=== PATIENT | female | born 1950 | race Two or more races ===

== ENCOUNTER 2016-10-25 20:20 | Emergency (ER) | payer MEDICARE, OTHER ==
--- NOTE | 2016-10-25 20:26 | PDOC ---
History of Present Illness - General History Source: Patient Exam Limitations: No Limitations - History of Present Illness Initial Comments: 10/25/16 20:56 The patient is a 65 year old female, with a significant past medical history of anxiety, DM, HTN, hypothyroid, and chronic lower back pain, who presents to the emergency department with dizziness. The patient reports having concerns of elevated blood glucose after feelings of dizziness. She also reports having a long history of neck pain radiating down from her neck into right side with associated numbness on her right side neck into her right arm for about 5 years. She also has complaints of of constipation and urinary retention, but was able to urinate in the ER. She denies recent fevers or chills. She denies recent nausea, vomit, or constipation. She denies recent dysuria, frequency, urgency or hematuria. She denies recent chest pain or shortness of breath. PAST MEDICAL HISTORY: See HPI PAST SURGICAL HISTORY: No significant history. FAMILY HISTORY: No pertinent history. SOCIAL HISTORY: Patient lives with family and is employed. MEDICATIONS: Reviewed. ALLERGIES: As per nursing notes. ROS General: No fevers or chills, no weakness, no weight loss HEENT: No change in vision. No sore throat. No ear pain CardioVascular: No chest pain or shortness of breath Respiratory:No cough, or wheezing. Gastrointestinal: +constipation. No nausea, vomiting, diarrhea or constipation. No rectal bleeding Genitourinary: +urinary retention. No dysuria, hematuria, or frequency Musculoskeletal: No joint or muscle pain or swelling Neurologic: +headache, vertigo, dizziness. No loss of consciousness Psychiatric: No depression Skin: No rashes or easy bruising Endocrine: no increased thirst or abnormal weight change Allergic: no skin or latex allergy All other systems reviewed and normal Exam: General: Well-nourished well-developed individual, no acute distress HEENT: Throat: Normal, tonsils normal, no erythema or exudate Neck: Supple, no meningeal signs, no lymphadenopathy Eyes: Pupils equal reactive and round, extraocular motion intact Chest: Nontender to palpation Cardiac: S1-S2 normal, regular rate and rhythm, no murmurs rubs or gallops Respiratory: Lungs clear to auscultation bilateral Abdomen: Soft, nondistended, normal bowel sounds, nontender to palpation diffusely Extremities: Warm, dry, no cyanosis, clubbing, or edema Skin: No rashes Neuro: Alert and oriented x3, nonfocal exam, grossly intact, normal gait Psych: Normal mood and affect <Bethel Whalen - Last Filed: 10/25/16 20:56> - General History Source: Patient Exam Limitations: No Limitations - History of Present Illness Initial Comments: 10/25/16 21:39 Flat and upright abdomen shows a moderate amount of stool in the rectum/ constipation A portion of this note was documented by scribe services under my direction. I have reviewed the details of the note, within reason, and agree with the documentation. The case summary and management plan written by me. Assessment and plan: This is a 65-year-old female who comes in complaining of multiple vague complaints. The patient was supposed to see her doctor today and her doctor couldn't see her so she came in for evaluation. Patient had normal CBC normal H& H and normal differential. The patient's chemistries showed some mild abnormalities however nothing acute that needed to be addressed here in the emergency room. Patient's flat and upright of her abdomen did show a moderate amount of constipation. Patient was told to purchase an oil retention enema as well as a fleets enema and is self administer when she got home in addition to that she should purchase some stool softeners and [id number] laxatives and take as directed on the box. Patient has an appointment to follow-up with her doctor tomorrow. <Juan Manuel Khoury I - Last Filed: 10/25/16 21:43> - General Chief Complaint: Back Pain Stated Complaint: BACK PAIN Time Seen by Provider: 10/25/16 20:21 Past History <Bethel Whalen - Last Filed: 10/25/16 20:56> - Past Medical History Thyroid Disease: Yes - Immunization History Td Vaccination: No - Psycho/Social/Smoking Cessation Hx Anxiety: Yes Suicidal Ideation: No Smoking Status: No Smoking History: Current every day smoker Have you smoked in the past 12 months: Yes Number of Cigarettes Smoked Daily: 3 Hx Alcohol Use: No Drug/Substance Use Hx: No <Juan Manuel Khoury I - Last Filed: 10/25/16 21:43> - Past Medical History Allergies/Adverse Reactions: Allergies Allergy/AdvReac Type Severity Reaction Status Date / Time codeine [Codeine] Allergy Mild Verified 05/15/11 18:36 cortisone [Cortisone] Allergy Mild Verified 05/15/11 18:37 Home Medications: Ambulatory Orders Unable To Verify Meds W/Pt 05/16/11 Lorazepam [Ativan] 0.5 mg PO DAILY PRN #0 tablet 05/18/11 Quetiapine Fumarate [Seroquel -] 25 mg PO DAILY #0 tablet 05/18/11 Synthroid #0 05/18/11 *Physical Exam - Vital Signs Last Vital Signs Temp Pulse Resp BP Pulse Ox 99 F 100 H 14 108/66 99 10/25/16 20:22 10/25/16 20:22 10/25/16 20:22 10/25/16 20:22 10/25/16 20:22 <Bethel Whalen - Last Filed: 10/25/16 20:56> ED Treatment Course - LABORATORY CBC & Chemistry Diagram: 10/25/16 21:10 10/25/16 21:10 <Juan Manuel Khoury I - Last Filed: 10/25/16 21:43> *DC/Admit/Observation/Transfer - Attestations Scribe Attestion: 10/25/16 20:56 Documentation prepared by Bethel Whalen, acting as medical charge entry specialist for Juan Manuel Khoury MD. <Bethel Whalen - Last Filed: 10/25/16 20:56> - Discharge Dispostion Admit: No <Juan Manuel Khoury I - Last Filed: 10/25/16 21:43> Diagnosis at time of Disposition: Slow transit constipation - Discharge Dispostion Disposition: HOME Condition at time of disposition: Good - Patient Instructions Additional Instructions: Purchase an [id number] oil retention enema as well as a fleets enema from the pharmacy and self administer at home as per the instructions. In addition to that you can purchase a stool softener and a laxative and take tomorrow if still have not had a significant delay large stool. Follow-up with your doctor tomorrow when you follow-up with your doctor discussed the constipation with your doctor and have your Dr. give you some medication for the constipation. Return to the emergency department immediately with ANY new, persistent or worsening symptoms. Continue any medications as previously prescribed by your physician. You should follow up with your primary doctor as soon as possible regarding today's emergency department visit. . Please make sure your doctor reviews the results of your emergency evaluation. Thank you for coming to the Emergency Department today for your care. It was a pleasure to see you today. Please note that your evaluation is INCOMPLETE until you follow-up with your doctor.
[2016-10-25 20:30] VITALS: BP 108/66; PULSE 100; TEMP 99; BMI 33.2
[2016-10-25 21:17] LABS: PH,URINE 5.5 (4.5-8); URINE BILIRUBIN Negative (NEGATIVE); URINE BLOOD Negative (NEGATIVE); URINE GLUCOSE (UA) Negative (NEGATIVE); URINE KETONE Trace (NEGATIVE); URINE NITRITE Positive (NEGATIVE)
[2016-10-25 21:18] LABS: URINE APPEARANCE HAZY; URINE COLOR YELLOW; URINE LEUK ESTERASE TRACE (NEGATIVE); URINE PROTEIN 1+ (NEGATIVE)
[2016-10-25 21:34] LABS: ALBUMIN 3.8 g/dl (3.5-5.0); ALK PHOS 84 U/L (32-92); ANION GAP 4 (8-16); BILIRUBIN,TOTAL 0.3 mg/dl (0.2-1.0); CALCIUM 8.9 mg/dl (8.4-10.2); CO2 24 mmol/L (22-28); CREATININE 0.8 mg/dl (0.6-1.3); GLUCOSE,RANDOM 167 mg/dl (74-106); SGOT/AST 45 U/L (10-42); SGPT/ALT 48 U/L (10-40); TOT PROT 7.3 g/dl (6.4-8.3)
[2016-10-25 21:35] LABS: BASOPHIL 0.6 % (0-2.0); EOSINOPHIL 3.1 % (0-4.5); MCH 29.9 pg (25.7-33.7); MEAN CELL VOLUME 87.9 fl (80-96); MEAN PLT VOLUME 10.2 fl (7.5-11.1); NEUTROPHILS 57.6 % (42.8-82.8); PLATELET COUNT 207 K/MM3 (134-434); RDW 13.4 % (11.6-15.6); WHITE BLOOD COUNT 6.6 K/mm3 (4.0-10.8)
[2016-10-25 22:01] LABS: URINE BACTERIA MANY /hpf (NEGATIVE)
--- NOTE | 2016-10-26 11:56 | EKG ---
Test Reason : Blood Pressure : / mmHG Vent. Rate : 085 BPM Atrial Rate : 085 BPM P-R Int : 156 ms QRS Dur : 106 ms QT Int : 396 ms P-R-T Axes : 036 -41 048 degrees QTc Int : 471 ms NORMAL SINUS RHYTHM LEFT AXIS DEVIATION VOLTAGE CRITERIA FOR LEFT VENTRICULAR HYPERTROPHY CANNOT RULE OUT SEPTAL INFARCT , AGE UNDETERMINED ABNORMAL ECG NO PREVIOUS ECGS AVAILABLE Confirmed by MAGDALENE SYED MD ([id number] on 10/26/2016 11:55:57 AM Referred By: MD LAW Confirmed By:MAGDALENE SYED MD
== END 2016-10-25 21:50 | disposition home or self-care (01) ==
LOC: FER 20:20
DX: K59.01 Slow transit constipation (principal); E07.9 Disorder of thyroid, unspecified; F17.210 Nicotine dependence, cigarettes, uncomplicated
CPT/HCPCS: 36415; 74020-TC; 80053; 81003; 81015; 85025; 93005; 99283-25

== ENCOUNTER 2023-03-23 19:45 | Inpatient (IN) | payer MEDICARE, OTHER ==
[2023-03-23 20:13] VITALS: BMI 33.6
[2023-03-23 20:56] LABS: BASO % 0.8 % (0-2.0); EOS % 0.3 % (0-4.5); HEMOGLOBIN 11.6 GM/dL (10.7-15.3); LYMPH % 13.7 % (8-40); MCH 31.5 pg (25.7-33.7); MEAN CELL VOLUME 92.6 fl (80-96); MEAN PLT VOLUME 9.6 fl (7.5-11.1); MONO % 6.6 % (3.8-10.2); NEUT % 78.6 % (42.8-82.8); PLATELET COUNT 307 10^3/uL (134-434); RBC 3.68 M/mm3 (3.60-5.2); RDW 15.4 % (11.6-15.6); WHITE BLOOD COUNT 9.8 K/mm3 (4.0-10.0)
[2023-03-23 21:28] LABS: POTASSIUM 4.9 mmol/L (3.5-5.1)
[2023-03-23 21:30] LABS: ALBUMIN 3.2 g/dl (3.4-5.0); BLOOD UREA NITROGEN 16.5 mg/dL (7-18); CALCIUM 8.6 mg/dL (8.5-10.1); MAGNESIUM 1.6 mg/dL (1.8-2.4)
[2023-03-23 21:34] LABS: PHOSPHOROUS 2.8 mg/dL (2.5-4.9)
[2023-03-23 21:35] LABS: BILIRUBIN,TOTAL 0.8 mg/dL (0.2-1); TOT PROT 7.6 g/dl (6.4-8.2)
[2023-03-23] MEDS ORDERED: MAGNESIUM SULF 50% (8.12 MEQ/2 ML-1 GM VIAL) IVPB ONE (21:43)
[2023-03-23] MEDS ORDERED: MAGNESIUM 1GM/D5W - 1 GM/100 ML IVPB IVPB ONE (21:56)
[2023-03-23 22:37] LABS: INR 1.19 (0.83-1.09); PROTHROMBIN TIME (PATIENT) 13.8 SEC (9.7-13.0)
[2023-03-23 22:40] LABS: ACTIVATED PTT 27.2 SECONDS (25.2-36.5)
[2023-03-24] MEDS ORDERED: SODIUM CHLORIDE 0.9% 500 ML INFUS.BAG IV ONE (00:35)
[2023-03-24] MEDS ORDERED: ACETAMINOPHEN 1000 MG/100 ML BAG IVPB ONE (00:35)
[2023-03-24] MEDS ORDERED: ACETAMINOPHEN INJECTION 100 ML IVPB ONE ×3 (01:20→15:18)
[2023-03-24 01:57] LABS: EPI CELLS 6 /uL (0-25.1); HYALINE CASTS 1 /uL (0-3.1); PH,URINE 6.5 (5.0-8.0); URINE APPEARANCE CLEAR; URINE BACTERIA 3 /uL (0-1359); URINE BILIRUBIN NEGATIVE (NEGATIVE); URINE COLOR YELLOW; URINE GLUCOSE (UA) 3+ (NEGATIVE); URINE KETONE TRACE (NEGATIVE); URINE LEUK ESTERASE NEGATIVE (NEGATIVE); URINE NITRITE NEGATIVE (NEGATIVE); URINE PROTEIN 3+ (NEGATIVE); URINE RBC 13 /uL (0-23.9); URINE WBC 4 /uL (0-25.8)
[2023-03-24] MEDS: SODIUM CHLORIDE 1,000 ML IV SCH (05:09)
[2023-03-24 08:46] LABS: BASO % 0.2 % (0-2.0); EOS % 0.2 % (0-4.5); HEMATOCRIT 32.2 % (32.4-45.2); HEMOGLOBIN 11.1 GM/dL (10.7-15.3); MCH 32.2 pg (25.7-33.7); MCHC 34.6 g/dl (32.0-36.0); MEAN CELL VOLUME 93.2 fl (80-96); MEAN PLT VOLUME 9.9 fl (7.5-11.1); MONO % 5.4 % (3.8-10.2); NEUT % 72.2 % (42.8-82.8); PLATELET COUNT 267 10^3/uL (134-434); RBC 3.46 M/mm3 (3.60-5.2); RDW 15.3 % (11.6-15.6)
[2023-03-24 09:09] LABS: POTASSIUM 3.9 mmol/L (3.5-5.1)
[2023-03-24 09:14] LABS: CALCIUM 7.9 mg/dL (8.5-10.1)
[2023-03-24 09:16] LABS: BLOOD UREA NITROGEN 17.3 mg/dL (7-18)
[2023-03-24 09:18] LABS: CREATININE 0.9 mg/dL (0.55-1.3)
[2023-03-24 09:19] LABS: TOT PROT 6.7 g/dl (6.4-8.2)
[2023-03-24] MEDS: ACETAMINOPHEN 1000 MG/100 ML BAG IVPB PRN ×2 (10:28→15:26)
[2023-03-25] MEDS: SODIUM CHLORIDE 1,000 ML IV SCH ×2 (15:10→21:31)
[2023-03-25] MEDS: ACETAMINOPHEN 1000 MG/100 ML BAG IVPB PRN (21:33)
[2023-03-26] MEDS: SODIUM CHLORIDE 1,000 ML IV SCH ×2 (06:54→14:39)
[2023-03-26] MEDS: ACETAMINOPHEN 1000 MG/100 ML BAG IVPB PRN ×3 (06:55→22:51)
[2023-03-26 07:24] LABS: BASO % 0.4 % (0-2.0); EOS % 1.9 % (0-4.5); HEMATOCRIT 28.7 % (32.4-45.2); HEMOGLOBIN 9.7 GM/dL (10.7-15.3); LYMPH % 22.6 % (8-40); MCH 31.7 pg (25.7-33.7); MCHC 33.9 g/dl (32.0-36.0); MEAN CELL VOLUME 93.7 fl (80-96); MEAN PLT VOLUME 9.6 fl (7.5-11.1); MONO % 6.9 % (3.8-10.2); NEUT % 68.2 % (42.8-82.8); PLATELET COUNT 242 10^3/uL (134-434); RBC 3.07 M/mm3 (3.60-5.2); RDW 15.5 % (11.6-15.6); WHITE BLOOD COUNT 6.2 K/mm3 (4.0-10.0)
[2023-03-26 08:00] LABS: POTASSIUM 3.6 mmol/L (3.5-5.1)
[2023-03-26 08:03] LABS: CALCIUM 7.9 mg/dL (8.5-10.1)
[2023-03-26 08:04] LABS: ALBUMIN 2.7 g/dl (3.4-5.0); BLOOD UREA NITROGEN 8.7 mg/dL (7-18)
[2023-03-26 08:07] LABS: CREATININE 0.8 mg/dL (0.55-1.3)
[2023-03-26 08:08] LABS: TOT PROT 6.4 g/dl (6.4-8.2)
[2023-03-26 08:09] LABS: BILIRUBIN,TOTAL 0.9 mg/dL (0.2-1)
[2023-03-26] MEDS: DEXTROSE 5%-0.45% SALINE 1,000 ML IV SCH (22:52)
[2023-03-27] MEDS ORDERED: LEVOTHYROXINE NA 75 MCG TABLET (FP) PO SCH (07:00)
[2023-03-27] MEDS ORDERED: LEVOTHYROXINE NA 50 MCG TABLET (FP) PO SCH (07:00)
[2023-03-27] MEDS: ACETAMINOPHEN 1000 MG/100 ML BAG IVPB PRN ×2 (09:03→14:59)
[2023-03-27] MEDS: LEVOTHYROXINE SODIUM 100 MCG 5 ML VIAL IVPUSH SCH (09:03)
[2023-03-28] MEDS: DEXTROSE 5%-0.45% SALINE 1,000 ML IV SCH ×2 (01:23→01:29)
[2023-03-28] MEDS: ACETAMINOPHEN 1000 MG/100 ML BAG IVPB PRN ×4 (01:37→23:18)
[2023-03-28 09:26] LABS: BASO % 0.7 % (0-2.0); EOS % 3.5 % (0-4.5); HEMATOCRIT 28.8 % (32.4-45.2); HEMOGLOBIN 9.6 GM/dL (10.7-15.3); LYMPH % 23.3 % (8-40); MCH 31.3 pg (25.7-33.7); MCHC 33.5 g/dl (32.0-36.0); MEAN CELL VOLUME 93.5 fl (80-96); MEAN PLT VOLUME 9.3 fl (7.5-11.1); MONO % 6.9 % (3.8-10.2); NEUT % 65.6 % (42.8-82.8); PLATELET COUNT 280 10^3/uL (134-434); RBC 3.08 M/mm3 (3.60-5.2); WHITE BLOOD COUNT 6.5 K/mm3 (4.0-10.0)
[2023-03-28 09:43] LABS: POTASSIUM 3.5 mmol/L (3.5-5.1)
[2023-03-28 09:46] LABS: ALBUMIN 2.5 g/dl (3.4-5.0); CALCIUM 7.9 mg/dL (8.5-10.1)
[2023-03-28 09:47] LABS: BLOOD UREA NITROGEN 6.8 mg/dL (7-18)
[2023-03-28 09:49] LABS: CREATININE 0.9 mg/dL (0.55-1.3)
[2023-03-28 09:51] LABS: BILIRUBIN,TOTAL 0.9 mg/dL (0.2-1); TOT PROT 6.2 g/dl (6.4-8.2)
[2023-03-28] MEDS: LEVOTHYROXINE SODIUM 100 MCG 5 ML VIAL IVPUSH SCH (10:42)
[2023-03-28] MEDS: INSULIN SLIDING SCALE (NOVOLOG) 1 VIAL SQ SCH ×3 (13:08→22:36)
[2023-03-29] MEDS: ACETAMINOPHEN 1000 MG/100 ML BAG IVPB PRN ×2 (05:24→16:56)
[2023-03-29] MEDS: INSULIN SLIDING SCALE (NOVOLOG) 1 VIAL SQ SCH ×4 (06:31→21:26)
[2023-03-29] MEDS: LEVOTHYROXINE SODIUM 100 MCG 5 ML VIAL IVPUSH SCH (09:49)
[2023-03-29] MEDS: ACETAMINOPHEN 325 MG TABLET (FP) PO PRN ×2 (15:35→21:15)
[2023-03-29] MEDS ORDERED: ATORVASTATIN CA 10 MG TABLET (FP) PO SCH (22:00)
[2023-03-30] MEDS: ACETAMINOPHEN 1000 MG/100 ML BAG IVPB PRN (01:52)
[2023-03-30] MEDS: ACETAMINOPHEN 325 MG TABLET (FP) PO PRN (03:01)
[2023-03-30] MEDS: INSULIN SLIDING SCALE (NOVOLOG) 1 VIAL SQ SCH ×3 (06:00→21:36)
[2023-03-30 09:28] LABS: BASO % 0.6 % (0-2.0); EOS % 3.7 % (0-4.5); HEMATOCRIT 29.1 % (32.4-45.2); MCH 31.9 pg (25.7-33.7); MCHC 34.2 g/dl (32.0-36.0); MEAN CELL VOLUME 93.3 fl (80-96); NEUT % 63.7 % (42.8-82.8); PLATELET COUNT 303 10^3/uL (134-434); RBC 3.12 M/mm3 (3.60-5.2); RDW 15.6 % (11.6-15.6); WHITE BLOOD COUNT 5.3 K/mm3 (4.0-10.0)
[2023-03-30 09:36] LABS: INR 1.17 (0.83-1.09); PROTHROMBIN TIME (PATIENT) 13.6 SEC (9.7-13.0)
[2023-03-30] MEDS: LEVOTHYROXINE SODIUM 100 MCG 5 ML VIAL IVPUSH SCH (10:13)
[2023-03-30] MEDS ORDERED: ACETAMINOPHEN 1000 MG/100 ML BAG IVPB ONE (11:15)
[2023-03-30 11:32] LABS: POTASSIUM 3.6 mmol/L (3.5-5.1)
[2023-03-30 12:15] LABS: ALBUMIN 2.7 g/dl (3.4-5.0); BLOOD UREA NITROGEN 10.9 mg/dL (7-18); CALCIUM 8.3 mg/dL (8.5-10.1)
[2023-03-30 12:17] LABS: CREATININE 0.9 mg/dL (0.55-1.3)
[2023-03-30 12:19] LABS: BILIRUBIN,TOTAL 0.9 mg/dL (0.2-1); TOT PROT 6.5 g/dl (6.4-8.2)
[2023-03-30] MEDS ORDERED: LISINOPRIL 5 MG TABLET PO SCH (12:30)
[2023-03-30] MEDS ORDERED: ROPIVACAINE HCL 0.5% 30ML VIAL ONE (14:16)
[2023-03-30] MEDS ORDERED: MIDAZOLAM HCL 2 MG/2 ML SINGLE DOSE VIAL ONE (14:17)
[2023-03-30] MEDS ORDERED: PROPOFOL 20 ML ONE (14:48)
[2023-03-30] MEDS ORDERED: LIDOCAINE HCL/PF 2% SDV 5ML VIAL ONE (14:50)
[2023-03-30] MEDS ORDERED: ceFAZolin SODIUM 1 GM VIAL IVPB ONE (15:00)
[2023-03-30] MEDS ORDERED: ceFAZolin SODIUM 1 GM VIAL ONE (15:00)
[2023-03-30] MEDS ORDERED: ONDANSETRON 4 MG/2 ML VIAL ONE (15:07)
[2023-03-30] MEDS ORDERED: oxyCODONE HCL 5 MG TABLET PO PRN (16:26)
[2023-03-30] MEDS ORDERED: PROMETHAZINE HCL 25 MG/1 ML VIAL IVPB PRN (16:26)
[2023-03-30] MEDS ORDERED: ONDANSETRON 4 MG/2 ML VIAL IVPUSH PRN (16:26)
[2023-03-30] MEDS: LACTATED RINGERS SOLUTION 1,000 ML IV SCH (16:30)
[2023-03-30] MEDS ORDERED: PROMETHAZINE HCL 25 MG/1 ML VIAL ONE (16:46)
[2023-03-30] MEDS ORDERED: PROMETHAZINE HCL 25 MG/1 ML VIAL IVPB ONE (16:49)
[2023-03-30] MEDS ORDERED: hydrALAZINE HCL 20 MG/ML VIAL IVPUSH ONE ×2 (16:56→17:02)
[2023-03-30] MEDS ORDERED: hydrALAZINE HCL 20 MG/ML VIAL ONE (17:00)
[2023-03-30] MEDS: oxyCODONE HCL 5 MG TABLET PO PRN (21:30)
[2023-03-30] MEDS: ATORVASTATIN CA 10 MG TABLET (FP) PO SCH (21:30)
[2023-03-30] MEDS: CEFAZOLIN SODIUM 2 GM in DEXTROSE 5%-WATER 100 ML IVPB SCH (22:40)
[2023-03-30] MEDS ORDERED: ceFAZolin 2 GRAM PREMIX BAG IVPB SCH (23:00)
[2023-03-31] MEDS: oxyCODONE HCL 5 MG TABLET PO PRN ×2 (06:18→10:25)
[2023-03-31] MEDS: CEFAZOLIN SODIUM 2 GM in DEXTROSE 5%-WATER 100 ML IVPB SCH (06:18)
[2023-03-31] MEDS: LEVOTHYROXINE SODIUM 100 MCG 5 ML VIAL IVPUSH SCH (06:18)
[2023-03-31] MEDS: INSULIN SLIDING SCALE (NOVOLOG) 1 VIAL SQ SCH ×4 (06:19→21:22)
[2023-03-31] MEDS: LISINOPRIL 5 MG TABLET PO SCH (09:10)
[2023-03-31] MEDS: LACTATED RINGERS SOLUTION 1,000 ML IV SCH ×2 (11:49→16:47)
[2023-03-31] MEDS: ACETAMINOPHEN 325 MG TABLET (FP) PO PRN (16:39)
[2023-03-31] MEDS: ATORVASTATIN CA 10 MG TABLET (FP) PO SCH (21:22)
[2023-04-01] MEDS: ACETAMINOPHEN 325 MG TABLET (FP) PO PRN ×4 (02:24→21:47)
[2023-04-01] MEDS: LEVOTHYROXINE SODIUM 100 MCG 5 ML VIAL IVPUSH SCH (06:13)
[2023-04-01] MEDS: INSULIN SLIDING SCALE (NOVOLOG) 1 VIAL SQ SCH ×4 (06:19→21:46)
[2023-04-01] MEDS: LACTATED RINGERS SOLUTION 1,000 ML IV SCH ×3 (06:20→21:41)
[2023-04-01] MEDS: LISINOPRIL 5 MG TABLET PO SCH (09:21)
[2023-04-01] MEDS ORDERED: BISACODYL 5 MG TABLET.DR (FP) PO ONE (15:33)
[2023-04-01] MEDS: POLYETHYLENE GLYCOL (HEALTHYLAX) 3350 17 GM PACKET PO SCH (17:00)
[2023-04-01] MEDS: ATORVASTATIN CA 10 MG TABLET (FP) PO SCH (21:40)
[2023-04-02] MEDS: LEVOTHYROXINE SODIUM 100 MCG 5 ML VIAL IVPUSH SCH (06:10)
[2023-04-02] MEDS: INSULIN SLIDING SCALE (NOVOLOG) 1 VIAL SQ SCH ×4 (06:15→21:15)
[2023-04-02] MEDS: LACTATED RINGERS SOLUTION 1,000 ML IV SCH (06:15)
[2023-04-02] MEDS: LISINOPRIL 5 MG TABLET PO SCH (09:24)
[2023-04-02] MEDS: ACETAMINOPHEN 325 MG TABLET (FP) PO PRN ×3 (09:24→22:15)
[2023-04-02] MEDS: POLYETHYLENE GLYCOL (HEALTHYLAX) 3350 17 GM PACKET PO SCH (09:25)
[2023-04-02] MEDS: ATORVASTATIN CA 10 MG TABLET (FP) PO SCH (21:15)
[2023-04-03] MEDS: INSULIN SLIDING SCALE (NOVOLOG) 1 VIAL SQ SCH ×4 (06:25→22:03)
[2023-04-03] MEDS: ACETAMINOPHEN 325 MG TABLET (FP) PO PRN ×2 (06:26→22:02)
[2023-04-03] MEDS: LEVOTHYROXINE SODIUM 100 MCG 5 ML VIAL IVPUSH SCH (06:30)
[2023-04-03] MEDS: POLYETHYLENE GLYCOL (HEALTHYLAX) 3350 17 GM PACKET PO SCH (09:13)
[2023-04-03] MEDS: LISINOPRIL 5 MG TABLET PO SCH (09:14)
[2023-04-03 10:12] LABS: POTASSIUM 3.5 mmol/L (3.5-5.1)
[2023-04-03 10:19] LABS: CALCIUM 8.3 mg/dL (8.5-10.1)
[2023-04-03 10:20] LABS: ALBUMIN 2.3 g/dl (3.4-5.0); BLOOD UREA NITROGEN 9.8 mg/dL (7-18)
[2023-04-03 10:22] LABS: BILIRUBIN,TOTAL 0.8 mg/dL (0.2-1)
[2023-04-03 10:23] LABS: CREATININE 0.7 mg/dL (0.55-1.3)
[2023-04-03] MEDS ORDERED: INSULIN SLIDING SCALE (NOVOLOG) 1 VIAL SQ ONE ×2 (10:36)
[2023-04-03 18:19] LABS: BASO % 0.4 % (0-2.0); EOS % 2.5 % (0-4.5); HEMATOCRIT 29.6 % (32.4-45.2); HEMOGLOBIN 9.8 GM/dL (10.7-15.3); LYMPH % 21.1 % (8-40); MCH 31.1 pg (25.7-33.7); MCHC 33.2 g/dl (32.0-36.0); MEAN CELL VOLUME 93.6 fl (80-96); MEAN PLT VOLUME 8.5 fl (7.5-11.1); MONO % 5.5 % (3.8-10.2); NEUT % 70.5 % (42.8-82.8); PLATELET COUNT 310 10^3/uL (134-434); RBC 3.16 M/mm3 (3.60-5.2); RDW 15.7 % (11.6-15.6); WHITE BLOOD COUNT 6.4 K/mm3 (4.0-10.0)
[2023-04-03] MEDS: ATORVASTATIN CA 10 MG TABLET (FP) PO SCH (22:02)
[2023-04-03] MEDS: HEPARIN NA (PORCINE) 5,000 UNITS/ML 1ML VIAL SQ SCH (22:02)
[2023-04-04 05:36] VITALS: RESP 18
[2023-04-04] MEDS: INSULIN SLIDING SCALE (NOVOLOG) 1 VIAL SQ SCH ×2 (07:02→10:43)
[2023-04-04] MEDS: LEVOTHYROXINE SODIUM 100 MCG 5 ML VIAL IVPUSH SCH (07:04)
[2023-04-04] MEDS: LISINOPRIL 5 MG TABLET PO SCH (09:22)
[2023-04-04] MEDS: HEPARIN NA (PORCINE) 5,000 UNITS/ML 1ML VIAL SQ SCH (09:22)
[2023-04-04] MEDS: POLYETHYLENE GLYCOL (HEALTHYLAX) 3350 17 GM PACKET PO SCH (09:22)
[2023-04-04 09:23] LABS: BASO % 0.6 % (0-2.0); EOS % 3.3 % (0-4.5); HEMATOCRIT 29.2 % (32.4-45.2); HEMOGLOBIN 9.6 GM/dL (10.7-15.3); LYMPH % 20.1 % (8-40); MCH 31.2 pg (25.7-33.7); MEAN CELL VOLUME 94.6 fl (80-96); MEAN PLT VOLUME 8.6 fl (7.5-11.1); MONO % 7.3 % (3.8-10.2); NEUT % 68.7 % (42.8-82.8); PLATELET COUNT 294 10^3/uL (134-434); RBC 3.08 M/mm3 (3.60-5.2); RDW 15.5 % (11.6-15.6); WHITE BLOOD COUNT 5.8 K/mm3 (4.0-10.0)
[2023-04-04 10:24] LABS: POTASSIUM 3.4 mmol/L (3.5-5.1)
[2023-04-04 10:39] LABS: CALCIUM 8.4 mg/dL (8.5-10.1)
[2023-04-04 10:40] LABS: ALBUMIN 2.4 g/dl (3.4-5.0)
[2023-04-04 10:42] LABS: BLOOD UREA NITROGEN 9.2 mg/dL (7-18); CREATININE 0.8 mg/dL (0.55-1.3)
[2023-04-04 10:45] LABS: BILIRUBIN,TOTAL 0.8 mg/dL (0.2-1); TOT PROT 6.2 g/dl (6.4-8.2)
[2023-04-04] MEDS ORDERED: POTASSIUM CHLORIDE TABS 10 MEQ TABLET.ER (FP) PO ONE (12:30)
[2023-04-04 14:34] VITALS: BP 149/77; PULSE 75; TEMP 98.1
== END 2023-04-04 06:40 | DRG 41 ==
LOC: JER 19:45 → JERBED 23:42 → J4W 03-24 18:53 → J6S 03-28 00:32
PROVIDERS: ADMIT Internal Medicine; ATTEND Internal Medicine
PROC: 0LQL0ZZ Repair Right Upper Leg Tendon, Open Approach (ICD-10-PCS; principal; 2023-03-29)
DX: S06.5X0A Traumatic subdural hemorrhage without loss of consciousness, initial encounter (principal); E87.1 Hypo-osmolality and hyponatremia; M62.82 Rhabdomyolysis; M80.08XA Age-related osteoporosis with current pathological fracture, vertebra(e), initial encounter for fracture; I10 Essential (primary) hypertension; E11.9 Type 2 diabetes mellitus without complications; E03.9 Hypothyroidism, unspecified; I45.10 Unspecified right bundle-branch block; X58.XXXA Exposure to other specified factors, initial encounter; Y93.9 Activity, unspecified; Y92.009 Unspecified place in unspecified non-institutional (private) residence as the place of occurrence of the external cause; Y99.8 Other external cause status; F41.9 Anxiety disorder, unspecified; M54.9 Dorsalgia, unspecified; E11.42 Type 2 diabetes mellitus with diabetic polyneuropathy; S76.191A Other specified injury of right quadriceps muscle, fascia and tendon, initial encounter; I12.9 Hypertensive chronic kidney disease with stage 1 through stage 4 chronic kidney disease, or unspecified chronic kidney disease; E11.22 Type 2 diabetes mellitus with diabetic chronic kidney disease; N18.9 Chronic kidney disease, unspecified; K59.00 Constipation, unspecified
CPT/HCPCS: 0241U-QW; 36415; 70450-TC; 71045-TC-FY; 71260-TC; 72125-TC; 72128-TC; 72131-TC; 72148-TC; 73552-TC-RT-FY; 73562-TC-RT-FY; 73564-TC-RT-FY; 73700-TC-RT; 74177-TC; 80053; 80061; 81003; 82272; 82550; 82553; 82962; 83036; 83735; 84100; 84439; 84443; 84481; 84484; 85025; 85610; 85730; 86850; 86900; 86901; 87086; 93005; 93010; 93306-TC; 93971-TC; 94760; 97116-GP; 97162-GP; 99285-25; J1644; Q9967

== ENCOUNTER 2023-04-25 16:10 | Inpatient (IN) | payer OTHER ==
[2023-04-25 18:02] LABS: BASO % 0.2 % (0-2.0); HEMATOCRIT 34.3 % (32.4-45.2); HEMOGLOBIN 11.2 GM/dL (10.7-15.3); LYMPH % 7.4 % (8-40); MCH 30.2 pg (25.7-33.7); MCHC 32.5 g/dl (32.0-36.0); MEAN CELL VOLUME 93.1 fl (80-96); MEAN PLT VOLUME 10.1 fl (7.5-11.1); MONO % 3.4 % (3.8-10.2); PLATELET COUNT 294 10^3/uL (134-434); RBC 3.69 M/mm3 (3.60-5.2); RDW 15.3 % (11.6-15.6)
[2023-04-25 18:04] LABS: EPI CELLS >36 /uL (0-25.1); HYALINE CASTS 15 /uL (0-3.1); PH,URINE 7.5 (5.0-8.0); URINE APPEARANCE TURBID; URINE BACTERIA >9,000 /uL (0-1359); URINE BILIRUBIN NEGATIVE (NEGATIVE); URINE COLOR YELLOW; URINE GLUCOSE (UA) NEGATIVE (NEGATIVE); URINE KETONE TRACE (NEGATIVE); URINE LEUK ESTERASE TRACE (NEGATIVE); URINE NITRITE NEGATIVE (NEGATIVE); URINE PROTEIN 3+ (NEGATIVE); URINE WBC 462 /uL (0-25.8)
[2023-04-25 18:12] LABS: INR 1.38 (0.83-1.09); PROTHROMBIN TIME (PATIENT) 15.9 SEC (9.7-13.0)
[2023-04-25 18:15] LABS: ACTIVATED PTT 29.9 SECONDS (25.2-36.5)
[2023-04-25 18:21] LABS: URINE RBC 96.9 /uL (0-23.9)
[2023-04-25 18:26] LABS: CHLORIDE 103 mmol/L (98-107); POTASSIUM 4.7 mmol/L (3.5-5.1); SODIUM 138 mmol/L (136-145)
[2023-04-25 18:29] LABS: ALBUMIN 3.1 g/dl (3.4-5.0); ANION GAP 13 mmol/L (4-13); CALCIUM 8.7 mg/dL (8.5-10.1); CO2 23 mmol/L (21-32)
[2023-04-25 18:30] LABS: GLUCOSE,RANDOM 221 mg/dL (74-106)
[2023-04-25 18:31] LABS: SGPT/ALT 15 U/L (13-61)
[2023-04-25 18:33] LABS: BILIRUBIN,TOTAL 0.9 mg/dL (0.2-1); SGOT/AST 30 U/L (15-37); TOT PROT 8.2 g/dl (6.4-8.2)
[2023-04-25 18:34] LABS: ALK PHOS 94 U/L (45-117)
[2023-04-25] MEDS ORDERED: CEFTRIAXONE 1,000 MG in DEXTROSE 5%-WATER - 50 ML IVPB ONE (18:45)
[2023-04-25] MEDS ORDERED: CEFTRIAXONE 1 GM/50 ML BAG ONE (19:23)
[2023-04-25 20:29] LABS: VENOUS BASE EXCESS -2.2 mmol/L (-2-2); VENOUS O2 SATURATION 95.3 % (70-80); VENOUS PCO2 37.7 mmHg (38-52); VENOUS PH 7.391 (7.310-7.410)
[2023-04-25] MEDS ORDERED: ASPIRIN 81 MG CHEWABLE TABLETS PO ONE ×2 (20:56→21:25)
[2023-04-25] MEDS ORDERED: ASPIRIN 325 MG TABLET ONE (21:47)
[2023-04-25] MEDS ORDERED: APIXABAN 2.5 MG TABLET PO ONE (22:54)
[2023-04-25] MEDS ORDERED: SODIUM CHLORIDE 1,000 ML IV STA (22:57)
[2023-04-25] MEDS ORDERED: APIXABAN 2.5 MG TABLET ONE (22:58)
[2023-04-26 06:58] LABS: BASO % 0.3 % (0-2.0); EOS % 0.1 % (0-4.5); HEMATOCRIT 34.7 % (32.4-45.2); HEMOGLOBIN 11.2 GM/dL (10.7-15.3); LYMPH % 17.4 % (8-40); MCH 29.7 pg (25.7-33.7); MCHC 32.2 g/dl (32.0-36.0); MEAN CELL VOLUME 92.3 fl (80-96); MEAN PLT VOLUME 9.8 fl (7.5-11.1); MONO % 5.5 % (3.8-10.2); NEUT % 76.7 % (42.8-82.8); PLATELET COUNT 294 10^3/uL (134-434); RBC 3.76 M/mm3 (3.60-5.2); RDW 15.1 % (11.6-15.6); WHITE BLOOD COUNT 9.7 K/mm3 (4.0-10.0)
[2023-04-26] MEDS ORDERED: LEVOTHYROXINE NA 100 MCG TABLET (FP) PO SCH ×2 (07:00→07:33)
[2023-04-26 07:01] LABS: POTASSIUM 4.2 mmol/L (3.5-5.1)
[2023-04-26 07:04] LABS: ALBUMIN 2.9 g/dl (3.4-5.0); BLOOD UREA NITROGEN 27.6 mg/dL (7-18); CALCIUM 8.6 mg/dL (8.5-10.1)
[2023-04-26 07:07] LABS: CREATININE 1.6 mg/dL (0.55-1.3)
[2023-04-26 07:08] LABS: BILIRUBIN,TOTAL 0.6 mg/dL (0.2-1); TOT PROT 7.7 g/dl (6.4-8.2)
[2023-04-26] MEDS ORDERED: CEFTRIAXONE 1 GM/50 ML BAG ONE (08:36)
[2023-04-26] MEDS ORDERED: LEVOTHYROXINE NA 25 MCG TABLET (FP) ONE (08:52)
[2023-04-26] MEDS ORDERED: LEVOTHYROXINE NA 50 MCG TABLET (FP) ONE (08:53)
[2023-04-26] MEDS ORDERED: APIXABAN 5 MG TABLET ONE (09:07)
[2023-04-26] MEDS ORDERED: ASPIRIN 81 MG CHEWABLE TABLETS ONE (09:07)
[2023-04-26] MEDS: ASPIRIN 81 MG CHEWABLE TABLETS PO SCH (09:12)
[2023-04-26] MEDS: CEFTRIAXONE 1 GM in DEXTROSE 5%-WATER - 50 ML IVPB SCH (09:12)
[2023-04-26] MEDS: APIXABAN 5 MG TABLET PO SCH ×2 (09:12→21:04)
[2023-04-26] MEDS ORDERED: LEVOTHYROXINE 100 MCG, LEVOTHYROXINE 25 MCG PO SCH (09:15)
[2023-04-26 15:04] VITALS: BMI 35.4
[2023-04-26] MEDS ORDERED: SODIUM CHLORIDE 0.45% 1,000 ML IV SCH (23:30)
[2023-04-27 01:34] LABS: EPI CELLS >36 /uL (0-25.1); HYALINE CASTS 32 /uL (0-3.1); PH,URINE 6.5 (5.0-8.0); URINE APPEARANCE TURBID; URINE BACTERIA >9,000 /uL (0-1359); URINE BILIRUBIN NEGATIVE (NEGATIVE); URINE COLOR YELLOW; URINE GLUCOSE (UA) NEGATIVE (NEGATIVE); URINE KETONE TRACE (NEGATIVE); URINE LEUK ESTERASE TRACE (NEGATIVE); URINE NITRITE NEGATIVE (NEGATIVE); URINE PROTEIN 2+ (NEGATIVE); URINE RBC 3 /uL (0-23.9); URINE UROBILINOGEN 0.2 mg/dL (0.2-1.0); URINE WBC 24 /uL (0-25.8)
[2023-04-27] MEDS: LEVOTHYROXINE NA 150 MCG TABLET PO SCH (06:20)
[2023-04-27] MEDS: INSULIN (LEVEMIR) 100 UNITS/ML UNITS SQ SCH (06:20)
[2023-04-27] MEDS: INSULIN ASPART SLIDING SCALE (NOVOLOG) 1 VIAL SQ SCH ×3 (06:23→16:53)
[2023-04-27 08:29] LABS: BASO % 0.6 % (0-2.0); HEMATOCRIT 33.4 % (32.4-45.2); HEMOGLOBIN 10.9 GM/dL (10.7-15.3); LYMPH % 20.5 % (8-40); MCHC 32.7 g/dl (32.0-36.0); MEAN CELL VOLUME 91.8 fl (80-96); MEAN PLT VOLUME 9.9 fl (7.5-11.1); MONO % 6.1 % (3.8-10.2); NEUT % 70.8 % (42.8-82.8); PLATELET COUNT 290 10^3/uL (134-434); RBC 3.64 M/mm3 (3.60-5.2); WHITE BLOOD COUNT 8.3 K/mm3 (4.0-10.0)
[2023-04-27 08:47] LABS: POTASSIUM 3.5 mmol/L (3.5-5.1)
[2023-04-27 09:01] LABS: ALBUMIN 2.8 g/dl (3.4-5.0); BLOOD UREA NITROGEN 24.2 mg/dL (7-18); CALCIUM 8.5 mg/dL (8.5-10.1)
[2023-04-27 09:04] LABS: BILIRUBIN,TOTAL 0.8 mg/dL (0.2-1)
[2023-04-27 09:06] LABS: TOT PROT 7.2 g/dl (6.4-8.2)
[2023-04-27] MEDS: CEFTRIAXONE 1 GM in DEXTROSE 5%-WATER - 50 ML IVPB SCH (10:34)
[2023-04-27] MEDS: ASPIRIN 81 MG CHEWABLE TABLETS PO SCH (10:34)
[2023-04-27] MEDS: APIXABAN 5 MG TABLET PO SCH ×2 (10:34→21:05)
[2023-04-27] MEDS ORDERED: INSULIN (NOVOLOG) ASPART 100 UNITS/ML 10ML VIAL ONE (16:50)
[2023-04-28] MEDS: LEVOTHYROXINE NA 150 MCG TABLET PO SCH (06:23)
[2023-04-28] MEDS: INSULIN ASPART SLIDING SCALE (NOVOLOG) 1 VIAL SQ SCH ×3 (06:23→16:37)
[2023-04-28] MEDS: INSULIN (LEVEMIR) 100 UNITS/ML UNITS SQ SCH (06:23)
[2023-04-28 07:31] LABS: POTASSIUM 3.3 mmol/L (3.5-5.1)
[2023-04-28 07:36] LABS: BLOOD UREA NITROGEN 19.1 mg/dL (7-18); CALCIUM 8.6 mg/dL (8.5-10.1)
[2023-04-28 07:37] LABS: ALBUMIN 2.7 g/dl (3.4-5.0)
[2023-04-28 07:39] LABS: CREATININE 1.1 mg/dL (0.55-1.3)
[2023-04-28 07:40] LABS: BILIRUBIN,TOTAL 0.7 mg/dL (0.2-1)
[2023-04-28 07:41] LABS: TOT PROT 7.2 g/dl (6.4-8.2)
[2023-04-28] MEDS ORDERED: POTASSIUM CHLORIDE TABS 10 MEQ TABLET.ER (FP) PO ONE (10:21)
[2023-04-28] MEDS: APIXABAN 5 MG TABLET PO SCH ×2 (10:56→21:20)
[2023-04-28] MEDS: CEFTRIAXONE 1 GM in DEXTROSE 5%-WATER - 50 ML IVPB SCH (10:56)
[2023-04-28] MEDS: ASPIRIN 81 MG CHEWABLE TABLETS PO SCH (10:56)
[2023-04-28] MEDS: ATORVASTATIN CA 20 MG TABLET (FP) PO SCH (21:20)
[2023-04-29] MEDS: INSULIN ASPART SLIDING SCALE (NOVOLOG) 1 VIAL SQ SCH ×3 (06:34→16:40)
[2023-04-29] MEDS: LEVOTHYROXINE NA 150 MCG TABLET PO SCH (06:40)
[2023-04-29] MEDS: INSULIN (LEVEMIR) 100 UNITS/ML UNITS SQ SCH (06:40)
[2023-04-29] MEDS: ASPIRIN 81 MG CHEWABLE TABLETS PO SCH (10:29)
[2023-04-29] MEDS: APIXABAN 5 MG TABLET PO SCH ×2 (10:29→21:14)
[2023-04-29] MEDS: CEFTRIAXONE 1 GM in DEXTROSE 5%-WATER - 50 ML IVPB SCH (10:30)
[2023-04-29] MEDS: ATORVASTATIN CA 20 MG TABLET (FP) PO SCH (21:14)
[2023-04-30] MEDS: INSULIN ASPART SLIDING SCALE (NOVOLOG) 1 VIAL SQ SCH ×3 (06:19→17:37)
[2023-04-30] MEDS: INSULIN (LEVEMIR) 100 UNITS/ML UNITS SQ SCH (06:20)
[2023-04-30] MEDS: LEVOTHYROXINE NA 150 MCG TABLET PO SCH (06:22)
[2023-04-30] MEDS: ASPIRIN 81 MG CHEWABLE TABLETS PO SCH (09:49)
[2023-04-30] MEDS: APIXABAN 5 MG TABLET PO SCH ×2 (09:49→21:56)
[2023-04-30] MEDS: CEFTRIAXONE 1 GM in DEXTROSE 5%-WATER - 50 ML IVPB SCH (09:51)
[2023-04-30] MEDS: ATORVASTATIN CA 20 MG TABLET (FP) PO SCH (21:56)
[2023-05-01] MEDS: INSULIN ASPART SLIDING SCALE (NOVOLOG) 1 VIAL SQ SCH ×3 (06:41→17:48)
[2023-05-01] MEDS: INSULIN (LEVEMIR) 100 UNITS/ML UNITS SQ SCH (06:41)
[2023-05-01] MEDS: LEVOTHYROXINE NA 150 MCG TABLET PO SCH (06:41)
[2023-05-01] MEDS: CEFTRIAXONE 1 GM in DEXTROSE 5%-WATER - 50 ML IVPB SCH (09:41)
[2023-05-01] MEDS: APIXABAN 5 MG TABLET PO SCH ×2 (09:41→21:31)
[2023-05-01] MEDS: ASPIRIN 81 MG CHEWABLE TABLETS PO SCH (09:41)
[2023-05-01] MEDS: ATORVASTATIN CA 20 MG TABLET (FP) PO SCH (21:31)
[2023-05-01] MEDS ORDERED: MELATONIN 5 MG TABLETS PO PRN (22:49)
[2023-05-01] MEDS ORDERED: ACETAMINOPHEN 1000 MG/100 ML BAG IVPB ONE (22:49)
[2023-05-02] MEDS: INSULIN (LEVEMIR) 100 UNITS/ML UNITS SQ SCH (06:23)
[2023-05-02] MEDS: LEVOTHYROXINE NA 150 MCG TABLET PO SCH (06:23)
[2023-05-02] MEDS: INSULIN ASPART SLIDING SCALE (NOVOLOG) 1 VIAL SQ SCH ×3 (06:41→16:35)
[2023-05-02] MEDS: CEFTRIAXONE 1 GM in DEXTROSE 5%-WATER - 50 ML IVPB SCH (09:55)
[2023-05-02] MEDS: APIXABAN 5 MG TABLET PO SCH ×2 (09:55→22:02)
[2023-05-02] MEDS: ASPIRIN 81 MG CHEWABLE TABLETS PO SCH (09:55)
[2023-05-02] MEDS: ATORVASTATIN CA 20 MG TABLET (FP) PO SCH (22:02)
[2023-05-03] MEDS: INSULIN ASPART SLIDING SCALE (NOVOLOG) 1 VIAL SQ SCH ×2 (06:37→11:44)
[2023-05-03] MEDS: INSULIN (LEVEMIR) 100 UNITS/ML UNITS SQ SCH (06:38)
[2023-05-03] MEDS: LEVOTHYROXINE NA 150 MCG TABLET PO SCH (06:38)
[2023-05-03] MEDS ORDERED: INSULIN (NOVOLOG) ASPART 100 UNITS/ML 10ML VIAL ONE (06:59)
[2023-05-03 08:03] LABS: HEMATOCRIT 33.5 % (32.4-45.2); HEMOGLOBIN 10.9 GM/dL (10.7-15.3); MCH 29.5 pg (25.7-33.7); MCHC 32.5 g/dl (32.0-36.0); MEAN CELL VOLUME 90.8 fl (80-96); MEAN PLT VOLUME 9.7 fl (7.5-11.1); PLATELET COUNT 285 10^3/uL (134-434); RBC 3.69 M/mm3 (3.60-5.2); RDW 14.9 % (11.6-15.6); WHITE BLOOD COUNT 4.3 K/mm3 (4.0-10.0)
[2023-05-03 08:27] LABS: POTASSIUM 3.3 mmol/L (3.5-5.1)
[2023-05-03 08:31] LABS: CALCIUM 8.7 mg/dL (8.5-10.1)
[2023-05-03 08:32] LABS: ALBUMIN 2.8 g/dl (3.4-5.0); BLOOD UREA NITROGEN 12.9 mg/dL (7-18)
[2023-05-03 08:35] LABS: CREATININE 0.9 mg/dL (0.55-1.3)
[2023-05-03 08:36] LABS: TOT PROT 7.5 g/dl (6.4-8.2)
[2023-05-03 08:37] LABS: BILIRUBIN,TOTAL 0.5 mg/dL (0.2-1)
[2023-05-03 09:16] VITALS: BP 133/88; PULSE 81; RESP 19; TEMP 98.1
[2023-05-03] MEDS ORDERED: POTASSIUM CHLORIDE ORAL LIQUID 20 MEQ/15 ML PO ONE (09:30)
[2023-05-03] MEDS: ASPIRIN 81 MG CHEWABLE TABLETS PO SCH (09:54)
== END 2023-05-03 12:30 | DRG 280 ==
LOC: JER 16:10 → JERBED 22:55 → J4W 04-26 13:37
PROVIDERS: ADMIT Internal Medicine; ATTEND Family Medicine
DX: I21.4 Non-ST elevation (NSTEMI) myocardial infarction (principal); G93.41 Metabolic encephalopathy; I82.402 Acute embolism and thrombosis of unspecified deep veins of left lower extremity; N17.9 Acute kidney failure, unspecified; E03.9 Hypothyroidism, unspecified; I10 Essential (primary) hypertension; E11.22 Type 2 diabetes mellitus with diabetic chronic kidney disease; E78.5 Hyperlipidemia, unspecified; I12.9 Hypertensive chronic kidney disease with stage 1 through stage 4 chronic kidney disease, or unspecified chronic kidney disease; N18.9 Chronic kidney disease, unspecified
CPT/HCPCS: 0241U-QW; 36415; 70450-TC; 71045-TC-FY; 71275-TC; 80048; 80053; 80307; 81003; 82140; 82550; 82803; 82962; 84439; 84443; 84484; 85025; 85027; 85610; 85730; 87086; 93005; 93010; 93306-TC; 93970-TC; 97116-GP; 97163-GP; 99285-25; Q9967

== ENCOUNTER 2023-05-30 19:08 | Emergency (ER) | payer OTHER ==
[2023-05-30 19:28] VITALS: BP 129/66; PULSE 83; RESP 20; TEMP 98; BMI 28.3
== END 2023-05-31 05:16 | disposition home or self-care (01) ==
LOC: JER 19:08
DX: M25.561 Pain in right knee (principal)
CPT/HCPCS: 99283-25